=== PATIENT | female | born 1945 | race Caucasian/White ===

== ENCOUNTER → 2018-04-11 | Day surgery (SDC) | payer MEDICARE ==
[2018-04-05 14:57] LABS: BASOPHILS # (AUTO) 0.1 (0.0-0.1); EOSINOPHILS # (AUTO) 0.1 (0.0-0.4); EOSINOPHILS % 1.5 % (0.0-6.0); HEMOGLOBIN 11.1 g/dL (12.0-16.0); LYMPHOCYTES # (AUTO) 2.2 (1.0-3.2); LYMPHOCYTES % 25.2 % (18.0-39.1); MEAN CORPUSCULAR HEMOGLOBIN 25.3 pg (28-32); MEAN CORPUSCULAR HGB CONC 29.2 g/dL (31-35); MEAN CORPUSCULAR VOLUME 86.6 fL (81-99); MONOCYTES # (AUTO) 0.7 (0.2-0.8); MONOCYTES % 7.9 % (4.4-11.3); NEUTROPHILS # (AUTO) 5.6 (2.1-6.9); NEUTROPHILS % 63.7 % (38.7-80.0); PLATELET COUNT 290 x10e3/uL (140-360); RED BLOOD COUNT 4.39 x10e6/uL (3.6-5.1); RED CELL DISTRIBUTION WIDTH 23.2 % (11.7-14.4)
--- NOTE | 2018-04-05 15:52 | Diagnostic Imaging Report ---
EXAMINATION: PA and lateral views of the chest. COMPARISON: None CLINICAL HISTORY: Preop for colonoscopy DISCUSSION: Lines/tubes: None. Lungs: Lungs are well-inflated. Increased lucency in the upper lobes may reflect COPD changes. No consolidation or pulmonary edema. Pleura: There is no pleural effusion or pneumothorax. Heart and mediastinum: Cardiomediastinal silhouette is unremarkable. Pulmonary vasculature is normal. Bones and soft tissues: No acute bony abnormalities. IMPRESSION: No acute cardiopulmonary abnormalities. Signed by: Dr. Tj Klein M.D. on 04/05/2018 3:48 PM
[~2018-04-11] MED LIST: AMLODIPINE BESYL5 MG PO; ATORVASTATIN CA10 MG PO; CARVEDILOL3.125 MG PO; CLOPIDOGREL75 MG PO; LIDOCAINE HCL 2% LOCAL INJ 5 ML SDV VIAL INJ ONE; LISINOPRIL10 MG PO; MIDAZOLAM HCL 2 MG/2 ML VIAL ONE; PROAIR; PROAIR HFA8.5 G1; PROPOFOL IV EMULSION 10 MG/ML 50 ML VIAL ONE; QUETIAPINE FUMA25 MG PO; SPIRIVA HANDIH18 MCG INH; VENLAFAXINE HCL75 MG PO; Z.0.ADVAIR 100-501 E IH; Z.0.CRESTOR10 MG PO; Z.0.DALIRESP500 MCG PO; [UNRECOGNIZED DRUG - OTHER] PO
--- OUTSIDE RECORDS SUMMARY | 2018-04-11 09:04 | XMS REPORT ---
Author Author [facility] Address Unknown Phone Unavailable Care Team Providers Care Audit Lead Name Role Phone CASSANDRA FROST Unavailable Unavailable Problems This patient has no known problems. Allergies, Adverse Reactions, Alerts This patient has no known allergies or adverse reactions. Medications This patient has no known medications. Results Test Description Test Time Test Comments Text Results Atomic Results Result Comments CHEST 2 VIEWS 2018-04-05 15:39:00 [place] [address] Patient Name: CELIA HUSTON MR #: [id number] : 1945 Age/Sex: 72/F Req #: [id number] [facility] Physician: Ordered by: HAKAN BIRD MD Report #: [id number] Location: OR Room/Bed: Procedure: [id number] DX/CHEST 2 VIEWS Exam Date: 04/05/18 Exam Time: 1505 REPORT STATUS: Signed EXAMINATION: PA and lateral views of the chest. COMPARISON: None CLINICAL HISTORY: Preop for colonoscopy DISCUSSION: Lines/tubes: None. Lungs: Lungs are well-inflated. Increased lucency in the upper lobes may reflect COPD changes. No consolidation or pulmonary edema. Pleura: There is no pleural effusion or pneumothorax. Heart and mediastinum: Cardiomediastinal silhouette is unremarkable. Pulmonary vasculature is normal. Bones and soft tissues: No acute bony abnormalities. IMPRESSION: No acute cardiopulmonary abnormalities. Signed by: Dr. Fidencio Klein M.D. on 04/05/2018 3:48 PM Dictated By: FIDENCIO KLEIN MD 1548 Transcribed By: RONNY on 04/05/18 1548 COPY TO: HAKAN BIRD MD
[2018-04-11 13:40] VITALS: BP 112/85
--- NOTE | 2018-04-11 14:16 | Operative Report ---
DATE OF PROCEDURE: April 11, 2018 REFERRING PHYSICIAN: Dr. Francois Capone PROCEDURES PERFORMED 1. Esophagogastroduodenoscopy with biopsies. 2. Colonoscopy with polypectomy. INDICATIONS FOR EGD: Iron deficiency anemia. INDICATIONS FOR COLONOSCOPY: Iron deficiency anemia. Personal history of colon polyps. MEDICATION: Patient was done under MAC. Please see anesthesiologist's note. PROCEDURE: With the patient in the left lateral decubitus position, the flexible fiberoptic Olympus gastroscope was introduced into the esophagus under direct visualization without any difficulty. There were some minute nodules noted in the distal esophagus that were biopsied. The scope was then advanced with ease into the stomach. Mucosa overlying the antrum and the body revealed some patchy erythema and moderate edema, and biopsies were obtained and sent to stain for H. pylori. Pylorus appeared to be of normal contour and shape. It was intubated with ease, and the scope was advanced all the way to the 2nd portion of the duodenum. Biopsies were obtained from the proximal 2nd portion to rule out sprue. Mucosa overlying the duodenal bulb appeared to be within normal limits. The scope was then withdrawn back into the stomach and retroflexed, and a minute nodule was noted in the fundus that was biopsied. The scope was then straightened out. Stomach was decompressed. Scope was subsequently withdrawn. Patient tolerated the procedure well. IMPRESSION 1. Distal esophageal nodule, biopsied. 2. Gastritis, biopsied. Biopsies sent to stain for H. pylori. 3. Fundal nodule, biopsied. 4. Rule out sprue. PLAN: Follow up histology. Initiate Protonix 40 mg 1 p.o. q.a.m. a.c. The patient was then turned around. After adequate lubrication of the anal canal, a flexible fiberoptic Olympus colonoscope was inserted into the rectum with ease and advanced all the way to the cecum. Some diverticular disease was noted in the cecum. The scope was then withdrawn slowly, and 1 polyp was hot biopsied and 1 polyp was snared from the ascending colon. One polyp was hot biopsied from the transverse colon. The descending grossly appeared to be within normal limits. Four polyps were hot biopsied and one polyp was snared from the sigmoid colon, and 5 polyps were hot biopsied from the rectum. The scope was then retroflexed into the distal rectum, and small internal hemorrhoids were noted, none of which was actively bleeding. The scope was then straightened out. It was subsequently withdrawn. Patient tolerated the procedure well. IMPRESSION 1. Ascending colon polyps times 2, one snared and one hot biopsied. 2. Transverse colon polyp times 1, hot biopsied. 3. Sigmoid colon polyps times 5, one snared and four hot biopsied. 4. Diverticulosis. 5. Rectal polyps times 5, hot biopsied. 6. Internal hemorrhoids, none actively bleeding. PLAN: Follow up histology. Initiate high-fiber, low-fat diet. Initiate high-fiber supplement. A total of 13 polyps were removed. Patient might benefit from a followup colonoscopy in 1 year. Job#: [id number] cc:FRANCOIS CAPONE DO
== END | disposition home or self-care (01) ==
LOC: OR 09:02
PROVIDERS: ATTEND Internal Medicine Gastroenterology
DX: D50.9 Iron deficiency anemia, unspecified (principal); D12.2 Benign neoplasm of ascending colon; K62.1 Rectal polyp; K29.70 Gastritis, unspecified, without bleeding; K21.0 Gastro-esophageal reflux disease with esophagitis; K31.89 Other diseases of stomach and duodenum; K57.30 Diverticulosis of large intestine without perforation or abscess without bleeding; K62.5 Hemorrhage of anus and rectum; K59.00 Constipation, unspecified; K64.8 Other hemorrhoids; I10 Essential (primary) hypertension; J44.9 Chronic obstructive pulmonary disease, unspecified; E78.5 Hyperlipidemia, unspecified; E66.3 Overweight; Z99.81 Dependence on supplemental oxygen; I25.10 Atherosclerotic heart disease of native coronary artery without angina pectoris; I25.2 Old myocardial infarction; I71.4 Abdominal aortic aneurysm, without rupture; F17.210 Nicotine dependence, cigarettes, uncomplicated; Z88.6 Allergy status to analgesic agent; Z01.810 Encounter for preprocedural cardiovascular examination; Z01.812 Encounter for preprocedural laboratory examination; Z01.818 Encounter for other preprocedural examination; Z79.82 Long term (current) use of aspirin; Z79.02 Long term (current) use of antithrombotics/antiplatelets; Z68.25 Body mass index [BMI] 25.0-25.9, adult; Z90.5 Acquired absence of kidney; Z86.73 Personal history of transient ischemic attack (TIA), and cerebral infarction without residual deficits; Z95.5 Presence of coronary angioplasty implant and graft; Z80.0 Family history of malignant neoplasm of digestive organs
CPT/HCPCS: 36415; 43239; 45384; 45385; 71046; 85025; 88305; 88312; 93005; J2001; J2250

== ENCOUNTER → 2019-01-25 | Day surgery (SDC) | payer MEDICARE ==
[2019-01-10 17:36] LABS: BASOPHILS # (AUTO) 0.1 (0.0-0.1); BASOPHILS % 1.3 % (0.0-1.0); EOSINOPHILS # (AUTO) 0.1 (0.0-0.4); EOSINOPHILS % 2.1 % (0.0-6.0); HEMATOCRIT 35.2 % (34.2-44.1); HEMOGLOBIN 10.5 g/dL (12.0-16.0); LYMPHOCYTES # (AUTO) 1.8 (1.0-3.2); LYMPHOCYTES % 29.3 % (18.0-39.1); MEAN CORPUSCULAR HEMOGLOBIN 24.8 pg (28-32); MEAN CORPUSCULAR HGB CONC 29.8 g/dL (31-35); MEAN CORPUSCULAR VOLUME 83.2 fL (81-99); MONOCYTES # (AUTO) 0.6 (0.2-0.8); MONOCYTES % 8.9 % (4.4-11.3); NEUTROPHILS # (AUTO) 3.7 (2.1-6.9); NEUTROPHILS % 58.1 % (38.7-80.0); PLATELET COUNT 440 x10e3/uL (140-360); RED BLOOD COUNT 4.23 x10e6/uL (3.6-5.1); RED CELL DISTRIBUTION WIDTH 27.4 % (11.7-14.4)
[~2019-01-25] MED LIST changes: +ASPIR 8181 MG PO; +CRESTOR10 MG PO; +DEXMEDETOMIDINE HCL 2 ML ONE; +DULERA 100 MCG/13 GM INH; +HYOSCYAMINE 0.125 MG TAB ONE; -LIDOCAINE HCL 2% LOCAL INJ 5 ML SDV VIAL INJ ONE; -MIDAZOLAM HCL 2 MG/2 ML VIAL ONE; +PANTOPRAZOLE SO40 MG PO; -PROAIR HFA8.5 G1; +PROAIR HFA8.5 G1 INH; +SODIUM CHLORIDE 0.9% 100 ML ONE; +SODIUM CHLORIDE 0.9% 50ML 50 ML ONE
[2019-01-25 15:15] VITALS: BP 123/60
--- NOTE | 2019-01-25 16:20 | Operative Report ---
DATE OF PROCEDURE: 01/25/2019 SURGEON: Dieter Landrum MD PROCEDURE: An EGD and a colonoscopy with polypectomy. INDICATIONS FOR EGD: History of esophageal nodule, bloating. INDICATIONS FOR COLONOSCOPY: Surveillance colonoscopy, personal history of numerous colon polyps. MEDICATIONS: The patient was under MAC, please see anesthesiologist's note. PROCEDURE IN DETAIL: With the patient in left lateral decubitus position, flexible fiberoptic Olympus gastroscope was introduced into the esophagus under direct visualization without any difficulty. The esophagus appeared to be within normal limits. The previously described nodule appeared to have resolved. The mucosa overlying the antrum and the body revealed some patchy areas of erythema. Pylorus was of normal contour and shape, it was intubated with ease and the scope was advanced all the way to the second portion of the duodenum. The scope was then withdrawn slowly, mucosa overlying the proximal second portion and duodenal bulb grossly appeared to be within normal limits. The scope was then withdrawn back into the stomach and retroflexed and mucosa overlying the fundus and cardia appeared to be within normal limits. The scope was then straightened out. The stomach was decompressed. The scope was subsequently withdrawn. The patient tolerated the procedure well. IMPRESSION: 1. Normal esophagus. 2. Gastritis, mild. PLAN: Continue Protonix 40 mg one p.o. q.a.m. a.c. PROCEDURE IN DETAIL: The patient was then turned around after adequate lubrication of the anal canal, flexible fiberoptic Olympus colonoscope was inserted into the rectum with ease and advanced all the way to the cecum. The scope was then withdrawn slowly. Mucosa overlying the cecum appeared to be within normal limits. One polyp was hot biopsied from the ascending colon. The transverse appeared to be within normal limits. Two polyps were snared, one polyp was hot biopsied from the descending colon. Diverticular disease was noted in the distal descending and the sigmoid colon. Three polyps were snared. Two polyps were hot biopsied from the sigmoid and one polyp was hot biopsied from the rectum. The scope was then retroflexed into the distal rectum and small internal hemorrhoids were noted, none of which was actively bleeding. The scope was then straightened out, it was subsequently withdrawn. The patient tolerated the procedure well. IMPRESSION: 1. Ascending colon polyp, hot biopsied. 2. Descending colon polyps x3, two snared and one hot biopsied. 3. Diverticulosis. 4. Sigmoid colon polyps x5, three snared and two were hot biopsied. 5. Rectal polyp x1 hot biopsied. 6. Internal hemorrhoids, none actively bleeding. A total of 10 polyps were removed. PLAN: Follow up histology. Initiate high-fiber, low-fat diet. Initiate high-fiber supplement. The patient might benefit from a followup colonoscopy in 3 years. MD ANNE Barajas/KIM /[id number] cc: Christiano Salmeron DO
== END | disposition home or self-care (01) ==
LOC: OR 10:35
PROVIDERS: ATTEND Internal Medicine Gastroenterology
DX: D12.2 Benign neoplasm of ascending colon (principal); D12.4 Benign neoplasm of descending colon; D12.5 Benign neoplasm of sigmoid colon; R14.0 Abdominal distension (gaseous); K29.70 Gastritis, unspecified, without bleeding; K59.00 Constipation, unspecified; D64.9 Anemia, unspecified; K22.8 Other specified diseases of esophagus; E78.5 Hyperlipidemia, unspecified; K21.9 Gastro-esophageal reflux disease without esophagitis; Z90.5 Acquired absence of kidney; I69.328 Other speech and language deficits following cerebral infarction; F41.9 Anxiety disorder, unspecified; F32.9 Major depressive disorder, single episode, unspecified; J44.9 Chronic obstructive pulmonary disease, unspecified; I25.2 Old myocardial infarction; Z95.5 Presence of coronary angioplasty implant and graft; I10 Essential (primary) hypertension; K63.5 Polyp of colon; K57.30 Diverticulosis of large intestine without perforation or abscess without bleeding; K62.1 Rectal polyp; K64.8 Other hemorrhoids
CPT/HCPCS: 36415; 43235; 45384; 45385; 85025; 88305; 93005; J2704; J7050; 43239; 45378

== ENCOUNTER → 2019-08-14 | Outpatient (CLI) | payer MEDICARE ==
[~2019-08-14] MED LIST changes: -DEXMEDETOMIDINE HCL 2 ML ONE; -HYOSCYAMINE 0.125 MG TAB ONE; -PROPOFOL IV EMULSION 10 MG/ML 50 ML VIAL ONE; -SODIUM CHLORIDE 0.9% 100 ML ONE; -SODIUM CHLORIDE 0.9% 50ML 50 ML ONE
--- NOTE | 2019-08-14 17:57 | Diagnostic Imaging Report ---
EXAM: CT Chest WITHOUT intravenous contrast 08/14/2019 12:00 AM INDICATION: Pulmonary nodules COMPARISON: Chest radiograph 04/05/2018 TECHNIQUE: Chest was scanned utilizing a multidetector helical scanner from the lung apex through the level of the adrenal glands without administration of IV contrast. Coronal and sagittal reformations were obtained. Routine protocol was performed. IV CONTRAST: None RADIATION DOSE: Total DLP: 536 mGy*cm. Dose modulation, iterative reconstruction, and/or weight based adjustment of the mA/kV was utilized to reduce the radiation dose to as low as reasonably achievable. COMPLICATIONS: None FINDINGS: LINES/ TUBES: None. LUNGS AND AIRWAYS: The lungs are hyperinflated. The central airways are patent. No focal consolidation or pulmonary edema. Mild upper lobe predominant centrilobular emphysema. Mild biapical pleural parenchymal thickening/scarring. Linear peripheral left upper lobe 8 mm opacity likely represents focal scarring. Subcentimeter calcified granulomas. Mild diffuse bronchial wall thickening. Dilated mucus plugging distal bronchioles in the right middle lobe. 7 mm left lower lobe pulmonary nodule (series 3 image 57). PLEURA: The pleural spaces are clear. HEART AND MEDIASTINUM: The thyroid gland is normal. No mediastinal, hilar or axillary lymphadenopathy. The heart is normal in size.. There is no pericardial effusion. Atherosclerotic calcifications involve the thoracic aorta and coronary arteries. UPPER ABDOMEN: No acute findings. BONES: No acute osseous injury. No suspicious lytic or blastic lesions. SOFT TISSUES: Unremarkable. IMPRESSION: Hyperinflated lungs with emphysematous changes. Bronchial wall thickening and areas of mucus plugging within dilated bronchioles of the right middle lobe. 7 mm left lower lobe pulmonary nodule. If the patient is low risk, recommend follow-up chest CT in 6-[address] at 18-24 months. If the patient is high risk, recommend follow-up chest CT at 6-12 months and again at 18-24 months. Signed by: Benjie Winter MD on 08/14/2019 5:54 PM
== END ==
LOC: CT 15:00
PROVIDERS: ATTEND Internal Medicine Critical Care Medicine
DX: J47.9 Bronchiectasis, uncomplicated (principal); R91.8 Other nonspecific abnormal finding of lung field
CPT/HCPCS: 71250

== ENCOUNTER → 2021-08-08 | Day surgery (SDC) | payer MEDICARE ==
[2021-08-06 15:03] LABS: BASOPHILS # (AUTO) 0.1 (0.0-0.1); BASOPHILS % 1.3 % (0.0-1.0); EOSINOPHILS # (AUTO) 0.2 (0.0-0.4); EOSINOPHILS % 3.5 % (0.0-6.0); HEMOGLOBIN 12.6 g/dL (12.0-16.0); LYMPHOCYTES % 29.2 % (18.0-39.1); MEAN CORPUSCULAR HEMOGLOBIN 27.6 pg (28-32); MEAN CORPUSCULAR VOLUME 92.1 fL (81-99); MONOCYTES # (AUTO) 0.5 (0.2-0.8); MONOCYTES % 7.3 % (4.4-11.3); NEUTROPHILS % 58.4 % (38.7-80.0); PLATELET COUNT 274 x10e3/uL (140-360); RED BLOOD COUNT 4.56 x10e6/uL (3.6-5.1); RED CELL DISTRIBUTION WIDTH 16.3 % (11.7-14.4)
[~2021-08-08] MED LIST changes: +FENTANYL CITRATE/PF 100MCG/2 ML INJ ONE; +HEMOCYTE PLUS1 EACH PO; +HYOSCYAMINE SULFATE 0.5 MG/ML INJ ONE; +LIDOCAINE HCL 2% LOCAL INJ 5 ML SDV VIAL INJ ONE; +MIDAZOLAM HCL 2 MG/2 ML VIAL ONE; +PROPOFOL IV EMULSION 10 MG/ML 20 ML VIAL ONE; +SERTRALINE HCL50 MG PO
[2021-08-08 14:15] VITALS: BP 141/67
== END | disposition home or self-care (01) ==
LOC: OR 10:47
PROVIDERS: ATTEND Internal Medicine Gastroenterology
DX: D50.9 Iron deficiency anemia, unspecified (principal); K31.7 Polyp of stomach and duodenum; K62.1 Rectal polyp; K29.80 Duodenitis without bleeding; K29.70 Gastritis, unspecified, without bleeding; K44.9 Diaphragmatic hernia without obstruction or gangrene; K57.30 Diverticulosis of large intestine without perforation or abscess without bleeding; K59.00 Constipation, unspecified; K64.8 Other hemorrhoids; R63.4 Abnormal weight loss; J44.9 Chronic obstructive pulmonary disease, unspecified; I10 Essential (primary) hypertension; I25.10 Atherosclerotic heart disease of native coronary artery without angina pectoris; F17.210 Nicotine dependence, cigarettes, uncomplicated; Z88.6 Allergy status to analgesic agent; Z01.812 Encounter for preprocedural laboratory examination; Z01.818 Encounter for other preprocedural examination; Z20.822 Contact with and (suspected) exposure to COVID-19; Z79.02 Long term (current) use of antithrombotics/antiplatelets; Z79.82 Long term (current) use of aspirin; Z79.899 Other long term (current) drug therapy; Z98.61 Coronary angioplasty status; Z99.81 Dependence on supplemental oxygen
CPT/HCPCS: 36415; 43239; 45385; 71046; 85025; 88305; 88312; J1980; J2001; J2250; J2704; J3010; U0002; 45378; 45384

== ENCOUNTER → 2023-05-24 | Outpatient (REF) | payer MEDICARE ==
[~2023-05-24] MED LIST changes: -FENTANYL CITRATE/PF 100MCG/2 ML INJ ONE; -HYOSCYAMINE SULFATE 0.5 MG/ML INJ ONE; -LIDOCAINE HCL 2% LOCAL INJ 5 ML SDV VIAL INJ ONE; -MIDAZOLAM HCL 2 MG/2 ML VIAL ONE; -PROPOFOL IV EMULSION 10 MG/ML 20 ML VIAL ONE
== END ==
LOC: RAD 11:07
PROVIDERS: ATTEND Internal Medicine Critical Care Medicine
DX: J44.9 Chronic obstructive pulmonary disease, unspecified (principal)
CPT/HCPCS: 71046